=== PATIENT | male | born 1925 | race Caucasian/White ===

== ENCOUNTER → 2016-06-25 | Outpatient (CLI) | payer MEDICARE, OTHER ==
[2014-12-25 18:00] VITALS: BP 138/73
[~2016-06-25] MED LIST: ATOR10TA PO; Enoxaparin Sodium SQ; IBUP-1027 PO; MULT-208 PO; TAMS0.4C97 PO; WARF10TA PO
--- NOTE | 2016-06-25 12:42 | KCIC ---
CT brain without contrast Indication: Dizziness. Axial imaging through the brain was performed without contrast. PQRS STATEMENT One or more of the following individualized dose reduction techniques were utilized for this study: 1.Automated exposure control. 2.Adjustment of the mA and/orkVaccording to patient size. 3.Use of iterative reconstruction technique. Comparison is made with prior head CT from 09/12/2015. The ventricles and sulci are within normal limits. No sulcal effacement, midline shift or hemorrhage is detected. The cisterns are patent. Visualized paranasal sinuses demonstrate a small amount of fluid in the left maxillary sinus. Impression: No acute intracranial process is detected. Electronically signed by: John Sethi MD (Jun 25, 2016 12:40:21)
--- NOTE | 2016-06-25 14:40 | KCIC ---
PROCEDURE Bilateral carotid duplex Doppler ultrasound HISTORY Dizziness. TECHNIQUE Duplex sonography of the cervical portion of both carotid arteries was performed including color flow imaging and spectral waveform analysis with flow velocity measurement and dent scale evaluation. COMPARISON Carotid Doppler ultrasound August 31, 2013. FINDINGS Right side: Peak systolic flow velocity of the distal CCA is 83 cm/sec. Peak systolic flow velocity of the ICA is 97 cm/sec. Thus, the ICA/CCA ratio is 1.2. Peak end diastolic flow velocity of the ICA is 18 cm/sec. The peak systolic velocity of the ECA is 89 cm/sec. Left side: Peak systolic flow velocity of the distal CCA is 67 cm/sec. Peak systolic flow velocity of the ICA is 78 cm/sec. Thus, the ICA/CCA ratio is 1.2. Peak end diastolic flow velocity of the ICA is 21 cm/sec. Peak systolic flow velocity of the ECA is 61 cm/sec. [Moderate plaque is noted throughout both common, internal, and external carotid arteries. Antegrade vertebral flow is seen bilaterally. IMPRESSION No evidence of hemodynamically significant internal carotid artery stenosis. PQRS compliance statement: Stenosis calculations for CT, MR and conventional angiography are based upon measurement of the distal ICA diameter in accordance with the NASCET methodology. Stenosis calculations for carotid ultrasound studies are derived from validated velocity criteria which are known to correlate with the NASCET methodology. Electronically signed by: Juan Bolanos MD (Jun 25, 2016 14:39:02)
== END | disposition home or self-care (01) ==
LOC: KCIC CT 12:09
PROVIDERS: ATTEND Family Medicine
DX: I65.23 Occlusion and stenosis of bilateral carotid arteries (principal)
CPT/HCPCS: 70450; 93880

== ENCOUNTER → 2016-07-12 | Outpatient (CLI) | payer MEDICARE, OTHER ==
[2014-12-25 18:00] VITALS: BP 138/73
--- NOTE | 2016-07-12 15:08 | KCIC ---
Venous lower extremity left Indication: Prior history of DVT. Grayscale, color flow and duplex Doppler evaluation of the left lower extremity venous system was performed. There is no evidence of left lower extremity DVT. Left lower extremity deep venous system shows normal compressibility with normal response to augmentation and Valsalva. No fluid collections are seen. Impression: No evidence of left lower extremity DVT. Electronically signed by: John Sethi MD (Jul 12, 2016 15:06:43)
== END | disposition home or self-care (01) ==
LOC: KCIC US 14:24
PROVIDERS: ATTEND Family Medicine
DX: I82.402 Acute embolism and thrombosis of unspecified deep veins of left lower extremity (principal)
CPT/HCPCS: 93971

== ENCOUNTER → 2016-12-17 | Outpatient (CLI) | payer MEDICARE, OTHER ==
[2014-12-25 18:00] VITALS: BP 138/73
[~2016-12-17] MED LIST changes: -WARF10TA PO; +WARF10TA45 PO
--- NOTE | 2016-12-17 16:09 | KCIC ---
CT sinus without contrast History: Headache, congestion, drainage, [employer] protocol. Technique: CT of the sinuses was performed without intravenous contrast according to [employer] protocol. Axial, sagittal, and coronal reconstructions were obtained. Exposure: One or more of the following individualized dose reduction techniques were utilized for this examination: 1. Automated exposure control 2. Adjustment of the mA and/or kV according to patient size 3. Use of iterative reconstruction technique Findings: Bilateral frontal sinuses appear clear. Sphenoid sinus is clear. There is evidence of postsurgical change involving the medial left maxillary wall as well as removal of multiple left ethmoid air cell septa. Right maxillary sinus is clear. Left maxillary sinus demonstrates small amount of fluid. No mucoperiosteal reaction is identified. Mildly displaced bilateral nasal bone fractures are seen, age-indeterminate. Post surgical changes of bilateral cataract surgery can be seen. Scleral band involves the left globe. IMPRESSION: 1. Mild left maxillary sinusitis with air-fluid level seen. 2. Evidence of previous surgery involving the medial left maxillary sinus wall and left ethmoid air cells. Electronically signed by: To Degroot MD (12/17/2016 4:06 PM) [place] [id number]
== END | disposition home or self-care (01) ==
LOC: KCIC CT 14:26
PROVIDERS: ATTEND Otolaryngology
DX: J32.0 Chronic maxillary sinusitis (principal)
CPT/HCPCS: 70486